=== PATIENT | female | born 1960 | race Caucasian/White ===

== ENCOUNTER 2017-05-20 09:17 | Emergency (ER) | payer OTHER ==
[2017-05-20 09:43] VITALS: BP 108/61
--- NOTE | 2017-05-20 09:55 | UC ---
Skin Complaint HPI - History of Current Complaint Hx Obtained From: Patient Hx Last Menstrual Period: now Onset/Duration: Sudden Onset - found tick on lower back and had remove it yesterdya. she thinks it was there for 2 days-she was hiking. also states she was treated for Lyme disease 5 y ago (blood work was neg. but had symps) Location: Other - L lower back Character: Redness - pinpoint, no rash Aggravating: Nothing Alleviating: Nothing Associated Signs & Symptoms: Positive: Negative Related History: Insect Bite/Sting <Arjun Hart - Last Filed: 05/20/17 09:55> <Bambi Morgan - Last Filed: 05/20/17 10:06> - History of Current Complaint Chief Complaint: UCSkin Time Seen by Provider: 05/20/17 09:45 Stated Complaint: TICK BITE - Allergy/Home Medications Allergies/Adverse Reactions: Allergies Allergy/AdvReac Type Severity Reaction Status Date / Time Codeine Allergy Severe GI Upset Verified 12/27/13 20:00 Review of Systems Constitutional: Negative Respiratory: Negative Cardiovascular: Negative Musculoskeletal: Negative Psychological: Negative All Other Systems Reviewed And Are Negative: Yes <Arjun Hart - Last Filed: 05/20/17 09:55> PMH/Surg Hx/FS Hx/Imm Hx Previously Healthy: Yes Psychological History: Depression - Surgical History Surgical History: None - Family History Known Family History: Positive: None - Social History Occupation: Employed Full-time Alcohol Use: Occasionally Substance Use Type: None Smoking Status (MU): Former Smoker Type: Cigarettes Amount Used/How Often: 3 daily <Arjun Hart - Last Filed: 05/20/17 09:55> Physical Exam Triage Information Reviewed: Yes Appearance: Well-Appearing, No Pain Distress, Well-Nourished Vital Signs: Initial Vital Signs Temp 98 F 05/20/17 09:34 Pulse 63 05/20/17 09:34 Resp 16 05/20/17 09:34 BP 108/61 05/20/17 09:34 Pulse Ox 100 05/20/17 09:34 Vital Signs Reviewed: Yes Respiratory Exam: Normal Cardiovascular Exam: Normal Musculoskeletal Exam: Normal Neurological Exam: Normal Psychological Exam: Normal Skin: Positive: Other - pinpoint red katina site of tick bite, no rash <Arjun Hart - Last Filed: 05/20/17 09:55> Vital Signs: Initial Vital Signs Temp 98 F 05/20/17 09:34 Pulse 63 05/20/17 09:34 Resp 16 05/20/17 09:34 BP 108/61 05/20/17 09:34 Pulse Ox 100 05/20/17 09:34 <Bambi Morgan - Last Filed: 05/20/17 10:06> Course/Dx - Differential Diagnoses - Skin Complaint Differential Diagnoses: Tick Born Illness - Diagnoses Provider Diagnoses: tick bite <Arjun Hart - Last Filed: 05/20/17 09:55> Discharge <Arjun Hart - Last Filed: 05/20/17 09:55> <Bambi Morgan - Last Filed: 05/20/17 10:06> - Discharge Plan Condition: Good Disposition: HOME Prescriptions: DOXYcycline CAP(*) [DOXYcycline 100MG CAP(*)] 100 mg PO DAILY #2 cap Patient Education Materials: Tick Bite (ED) Referrals: Laura Cooney MD [Primary Care Provider] - If Needed (for any signs of Lyme disease) Additional Instructions: keep area clean and dry and watch for signs of Lyme disease. Attestation Statement User Type: Provider - I was available for consult. This patient was seen by the LEONEL. The patient was not presented to, seen by, or examined by me. -Franco <Bambi Morgan - Last Filed: 05/20/17 10:06>
== END 2017-05-20 09:55 | disposition home or self-care (01) ==
LOC: UCEAST 09:17
DX: S30.860A Insect bite (nonvenomous) of lower back and pelvis, initial encounter (principal); W57.XXXA Bitten or stung by nonvenomous insect and other nonvenomous arthropods, initial encounter; Y93.9 Activity, unspecified; Y92.9 Unspecified place or not applicable; F32.9 Major depressive disorder, single episode, unspecified; Z88.5 Allergy status to narcotic agent; Z87.891 Personal history of nicotine dependence
CPT/HCPCS: 99212; G0463

== ENCOUNTER → 2018-09-06 05:58 | Day surgery (SDC) | payer OTHER ==
--- NOTE | 2018-08-28 06:27 | HP ---
HISTORY AND PHYSICAL: DATE OF ADMISSION: 09/06/18 She will be entering [facility] for arthroscopic left knee surgery on 09/06/18. CHIEF COMPLAINT: Left knee anteromedial pain with stiffness, locking, catching , and feelings of given way. HISTORY OF PRESENT ILLNESS: This knee problem got started very suddenly with an awkward bend with a torque on her left knee and unfortunately there was a hot searing bolt of pain that went through the knee at that time and the knee has not been right since then. She has been seen and checked. An MRI scan of the knee shows displaced tearing of the left knee medial meniscus and arthroscopic surgery has been recommended. PAST MEDICAL HISTORY: No diabetes, no hypertension, no chest pain. No bleeding tendencies. PAST SURGICAL HISTORY: Gallbladder removal, and she has had skin cancer. MEDICATIONS: Daily meds: 1. Seroquel 25 mg each evening. 2. Advil 200 mg as necessary. 3. Multivitamins. 4. She has used turmeric. ALLERGIES: She is allergic to CODEINE with GI upset only. No problems with kidney or bladder. No problems with stomach or liver. SOCIAL HISTORY: No smoking. One to two glasses of wine per week. PHYSICAL EXAMINATION Head: NC/AT Cr. NN: Grossly intact Lungs: Clear bilaterally. Heart: Reg. S1 S2 WNL. No murmur or gallops. Abd: Flat, soft, non-tender, no organomegaly. EXTREMITIES: Slight limp on the left. The left knee has a small effusion with extension 0 with discomfort. Tenderness to the medial joint line. Some medial joint discomfort with rotational testing. The left knee nontender anteriorly, laterally, posteriorly. MCL and LCL normal. Anastasiia slight excursion, the same on the right knee and the posterior drawer is negative. The thigh and calf are soft, the calf is nontender. The left posterior tibial pulse is 2+. MRI left knee. Displaced medial meniscal tear IMPRESSION: Left knee medial meniscal tear. PLAN: Left knee arthroscopic surgery. [id number] #: [id number] MTDD
[~2018-09-06 05:58] MED LIST: Buffered Lidocaine 0.9% SYRIN* 5 ML/SYR SYRINGE INTRADERM ONE; Buffered Lidocaine 0.9% SYRIN* 5 ML/SYR SYRINGE ONE; Bupivacaine 0.25% EPI 200,000* 30 ML SDV ONE; Calcium Carbonate CHEW TAB* 500 MG (TUMS) PO ONE; Dexamethasone IV* 4 MG/ML 1 ML (4 MG) ONE; DiMENhydriNATE IV* 50 MG/ML VIAL IV PUSH PRN; Esmolol* 10 MG/ML 10 ML (100 mg) ONE; Ketorolac INJ* 30 MG/ML 1 ML VIAL ONE; Lidocaine 1% MPF wEPI 200,000* 30 ML SDV ONE; Lidocaine 2% PF * 5 ML VIAL ONE; Midazolam* 1 MG/ML 2 ML VIAL (2 MG) ONE; Naloxone* 0.4 MG/ML 1 ML VIAL IV PRN; Propofol* 10 MG/ML 20 ML BTL IV PUSH ONE; Sodium Citrate/Citric Acid* 15 ML UDC ONE; Sodium Citrate/Citric Acid* 15 ML UDC PO ONE; ceFAZolin 2 GM PREMIX in ORs 2 GM/50 ML BAG IVPB ONE; fentaNYL* 50 MCG/ML 2 ML VIAL (100 MCG VIAL) ONE; oxyCODONE/Acetamin 5/325 MG* TAB ONE
[2018-09-06] MEDS: fentaNYL* 50 MCG/ML 2 ML VIAL (100 MCG VIAL) IV PRN ×3 (08:58→09:49)
[2018-09-06 11:19] VITALS: BP 117/73
--- NOTE | 2018-09-07 03:29 | OP ---
OPERATIVE REPORT: DATE OF OPERATION: 09/06/18 - SDS DATE OF : 64 SURGICAL CARE: Left knee. SURGEON: Sanjiv Henriquez MD SHOPPER INSIGHTS MANAGER: Yolande Morgan pc network technician. ANESTHESIOLOGIST: Dr. Lenny Foreman. ANESTHESIA: LMA general. PRE-OP DIAGNOSIS: Left knee medial meniscal tear. POST-OP DIAGNOSIS: Left knee medial meniscal tear. It was a bucket handle type. OPERATIVE PROCEDURE: Left knee partial medial meniscectomy. COMPLICATIONS: There were no complications. DRAINS: There were no drains. TOURNIQUET: Tourniquet control was utilized. CONDITION: Stable to the recovery room. OPERATIVE INDICATIONS: Displaced bucket handle tear of the left knee medial meniscus with continued pain and disability. DESCRIPTION OF PROCEDURE: The patient was brought to the operating room and placed on the operating room table in the supine position. Following the administration of the anesthetic, the left lower extremity was wrapped with a proximal thigh tourniquet. The left leg was prepped from the tourniquet to the foot and then draped free and carefully sealed off in the usual fashion for arthroscopic surgery of the knee. The leg, ankle, and foot portions were sealed off with an impermeable drape with a Vi-Drape wrapped around the calf at the top of that. We did our universal protocol time-out confirming Juana Schroeder and a plan for left knee arthroscopic surgery. We all agreed and we proceeded. The leg was exsanguinated. The tourniquet was elevated to 275. The knee was set up for arthroscopy with the arthroscope lateral to the patellar tendon, probe and operating instruments medial to the patellar tendon and an inflow catheter superomedial to the patella. The survey of the joint showed that the patellofemoral joint was in satisfactory condition. The medial and lateral gutters were clear. There was a displaced bucket handle tear of the medial meniscus with displaced portion being soft and fissured and in several longitudinal pieces. The patient had a normal lateral femoral condyle, lateral meniscus, lateral tibial plateau, normal ACL and PCL, normal medial tibial plateau. The medial femoral condyle did have some cartilage wear on its weightbearing area possibly half a centimeter wide x 2 cm anterior to posterior. Once the pathology was evident, I undid the meniscus anteriorly with shaver and scissors and then the posterior portion was undone with the same and the knee was then inspected through the intercondylar notch. There was some debris posteriorly. The posteromedial meniscus, we finished resection in that region and smoothing. Care was taken not to injure the medial femoral condyle, medial tibial plateau during this surgical care. Photographs were obtained. Once the surgical care was complete, the tourniquet was deflated. The knee was irrigated with another 5 L of saline irrigation solution, then emptied, then instilled with Marcaine 0.25% with epinephrine 30 mL. The skin portals were closed with interrupted 3-0 Surgipro and a dressing applied after washing and drying of Betadine soaked release, sterile Webril and gauze, cryotherapy cuff, ABD pads, and a 6-inch Riccarod bandage loosely applied. The patient was returned to the recovery room in stable and satisfactory condition having tolerated the procedure very well. [id number] #: [id number] WILLIAM
== END | disposition home or self-care (01) ==
LOC: OR 05:58
PROVIDERS: ATTEND Orthopaedic Surgery
DX: S83.212A Bucket-handle tear of medial meniscus, current injury, left knee, initial encounter (principal); X50.0XXA Overexertion from strenuous movement or load, initial encounter; Y92.9 Unspecified place or not applicable; Z85.828 Personal history of other malignant neoplasm of skin; Z87.891 Personal history of nicotine dependence
CPT/HCPCS: 88304; A9270-GY; J0690; J1100; J1885; J2001; J2250; J2704; J3010

== ENCOUNTER → 2019-03-07 13:48 | Emergency (ER) | payer OTHER ==
[~2019-03-07 13:48] MED LIST changes: -Buffered Lidocaine 0.9% SYRIN* 5 ML/SYR SYRINGE INTRADERM ONE; -Buffered Lidocaine 0.9% SYRIN* 5 ML/SYR SYRINGE ONE; -Bupivacaine 0.25% EPI 200,000* 30 ML SDV ONE; -Calcium Carbonate CHEW TAB* 500 MG (TUMS) PO ONE; -Dexamethasone IV* 4 MG/ML 1 ML (4 MG) ONE; -DiMENhydriNATE IV* 50 MG/ML VIAL IV PUSH PRN; -Esmolol* 10 MG/ML 10 ML (100 mg) ONE; +Iohexol 300* (CONTRAST) 10 ML SDV IV ONE; -Ketorolac INJ* 30 MG/ML 1 ML VIAL ONE; -Lidocaine 1% MPF wEPI 200,000* 30 ML SDV ONE; -Lidocaine 2% PF * 5 ML VIAL ONE; +Metoclopramide IV* 5 MG/ML 2 ML VIAL IV ONE; -Midazolam* 1 MG/ML 2 ML VIAL (2 MG) ONE; +NS 0.9% 1000 ML** 1,000 ML IV ONE; -Naloxone* 0.4 MG/ML 1 ML VIAL IV PRN; +Ondansetron INJ* 2 MG/ML VIAL IV ONE; +Pantoprazole IV* 40 MG IV ONE; -Propofol* 10 MG/ML 20 ML BTL IV PUSH ONE; -Sodium Citrate/Citric Acid* 15 ML UDC ONE; -Sodium Citrate/Citric Acid* 15 ML UDC PO ONE; -ceFAZolin 2 GM PREMIX in ORs 2 GM/50 ML BAG IVPB ONE; +diPHENhydraMINE IV* 50 MG/ML 1 ml VIAL (BENADRYL) IV ONE; -fentaNYL* 50 MCG/ML 2 ML VIAL (100 MCG VIAL) ONE; -oxyCODONE/Acetamin 5/325 MG* TAB ONE
[2019-03-07 16:13] LABS: ABS Basophils 0 10^3/ul (0-0.2); ABS Eosinophils 0 10^3/ul (0-0.6); ABS Lymphocytes 0.3 10^3/ul (1.0-4.8); ABS Monocytes 0.5 10^3/ul (0-0.8); ABS Neutrophils 4.8 10^3/ul (1.5-7.7); ABS Nucleated RBC 0 10^3/ul; Eosinophil % 0.4 %; Hematocrit 40 % (33-41); Hemoglobin 13.5 g/dL (12.0-16.0); Lymphocyte % 4.6 %; Mean Corpuscular HGB Conc 34 g/dL (31-36); Mean Corpuscular Hemoglobin 32 pg (27-31); Mean Corpuscular Volume 94 fL (80-97); Mean Platelet Volume 9.3 fL (7.4-10.4); Nucleated Red Blood Cells % 0; Platelet Count 181 10^3/uL (150-450); Red Blood Count 4.29 10^6 /uL (3.70-4.87); Red Cell Distribution Width 14 % (10.5-15); White Blood Count 5.7 10^3/uL (3.5-10.8)
--- NOTE | 2019-03-07 16:15 | ED ---
Abdominal Pain/Female - HPI Summary HPI Summary: A 58 y/o F presents to ED with c/o abd pain onset 1300. She thinks she may have gotten food poisoning yesterday evening. Then around 2100, she had ongoing vomiting. She woke up this AM with a ROMAN. When she ate toast at 1300 today, she took an Advil and felt sudden-onset abd pain (rated as 9 out of 10), became diaphoretic, and had diarrhea that was bloody. This episode lasted approx 30 minutes. She has not had a BM since. Additional associated sx: fever (101.7 F). Abd pain is 3 out of 10 at bedside. No one else at home is sick. No PMHx: colitis. - History of Current Complaint Chief Complaint: EDAbdPain Stated Complaint: STOMACH PAIN, BLOODY STOOL PER PT Time Seen by Provider: 03/07/19 16:07 Hx Obtained From: Patient, Family/Automotive Leasing Sales Representative - Hx Last Menstrual Period: now Onset/Duration: Sudden Onset, Lasting Hours, Still Present Timing: Constant Severity Initially: Severe Severity Currently: Severe Pain Intensity: 4 Pain Scale Used: 0-10 Numeric Location: Diffuse Associated Signs and Symptoms: Positive: Diaphoresis, Fever, Blood in Stool, Vomiting, Diarrhea, Other: - pos: diaphoresis, ROMAN Allergies/Adverse Reactions: Allergies Allergy/AdvReac Type Severity Reaction Status Date / Time codeine Allergy GI Upset Verified 03/07/19 14:02 PMH/Surg Hx/FS Hx/Imm Hx Previously Healthy: Yes Endocrine/Hematology History: Denies: Hx Diabetes Cardiovascular History: Denies: Hx Hypertension, Hx Pacemaker/ICD, Other Cardiovascular Problems/ Disorders Respiratory History: Denies: Hx Asthma, Other Respiratory Problems/Disorders GI History: Denies: Other GI Disorders Sensory History: Reports: Hx Contacts or Glasses - glasses Denies: Hx Hearing Aid Opthamlomology History: Reports: Hx Contacts or Glasses - glasses Neurological History: Denies: Other Neuro Impairments/Disorders Psychiatric History: Denies: Hx Panic Disorder - Cancer History Cancer Type, Location and Year: BASAL CELL SKIN CA Hx Chemotherapy: No Hx Radiation Therapy: No - Surgical History Surgery Procedure, Year, and Place: LAP NAHUM, 1995. RHINOPLASTY, 1982 Hx Anesthesia Reactions: No Infectious Disease History: No Infectious Disease History: Denies: Hx Clostridium Difficile, Hx Hepatitis, Hx Human Immunodeficiency Virus (HIV), Hx of Known/Suspected MRSA, Hx Shingles, Hx Tuberculosis, Hx Known/ Suspected VRE, Hx Known/Suspected VRSA, History Other Infectious Disease, Traveled Outside the [place] in Last 30 Days - Family History Known Family History: Positive: Other - Breast CA - Social History Occupation: Retired Lives: With Family Alcohol Use: Weekly Alcohol Amount: 3-4 per week Hx Substance Use: No Substance Use Type: Reports: None Hx Tobacco Use: Yes Smoking Status (MU): Former Smoker Type: Cigarettes Amount Used/How Often: 3 daily for 30 yrs Review of Systems Positive: Fever, Skin Diaphoresis Positive: Abdominal Pain, Vomiting, Diarrhea, Other - pos: blood in stool Positive: Headache All Other Systems Reviewed And Are Negative: Yes Physical Exam - Summary Physical Exam Summary: GENERAL: Patient is a well-developed and nourished FEMALE who is lying comfortable in the stretcher. Patient is not in any acute respiratory distress. HEAD AND FACE: Normocephalic EYES: PERRLA, EOMI x 2. EARS: Hearing grossly intact. MOUTH: Oropharynx within normal limits. NECK: Supple, trachea is midline, no adenopathy, no JVD, no carotid bruit. CHEST: Symmetric, no tenderness at palpation LUNGS: Clear to auscultation bilaterally. No wheezing or crackles. CVS: Regular rate and rhythm, S1 and S2 present, no murmurs or gallops appreciated. ABDOMEN: Soft, mildly diffuse tenderness to palpation. No rebound, no guarding. Bowel sounds are normal. No abdominal abnormal pulsations. EXTREMITIES: Full ROM in all major joints, no edema, no cyanosis or clubbing. NEURO: Alert and oriented x 3. No acute neurological deficits. Speech is normal and follows commands. SKIN: Dry and warm Triage Information Reviewed: Yes Vital Signs On Initial Exam: Initial Vitals Temp Pulse Resp BP Pulse Ox 97.7 F 57 16 120/75 99 03/07/19 13:57 03/07/19 13:57 03/07/19 13:57 03/07/19 13:57 03/07/19 13:57 Vital Signs Reviewed: Yes Diagnostics - Vital Signs Vital Signs Temp Pulse Resp BP Pulse Ox 03/07/19 15:49 98.5 F 53 16 98/65 98 03/07/19 13:57 97.7 F 57 16 120/75 99 - Laboratory Lab Results: Lab Results 03/07/19 Range/Units 16:00 WBC 5.7 (3.5-10.8) 10^3/uL RBC 4.29 (3.70-4.87) 10^6 /uL Hgb 13.5 (12.0-16.0) g/dL Hct 40 (33-41) % MCV 94 (80-97) fL MCH 32 H (27-31) pg MCHC 34 (31-36) g/dL RDW 14 (10.5-15) % Plt Count 181 (150-450) 10^3/uL MPV 9.3 (7.4-10.4) fL Neut % (Auto) 85.5 % Lymph % (Auto) 4.6 % [place] % (Auto) 9.4 % Eos % (Auto) 0.4 % Baso % (Auto) 0.1 % Absolute Neuts (auto) 4.8 (1.5-7.7) 10^3/ul Absolute Lymphs (auto) 0.3 L (1.0-4.8) 10^3/ul Absolute Monos (auto) 0.5 (0-0.8) 10^3/ul Absolute Eos (auto) 0 (0-0.6) 10^3/ul Absolute Basos (auto) 0 (0-0.2) 10^3/ul Absolute Nucleated RBC 0 10^3/ul Nucleated RBC % 0 Result Diagrams: 03/07/19 16:00 03/07/19 16:00 Lab Statement: Any lab studies that have been ordered have been reviewed, and results considered in the medical decision making process. - CT A/P CT CT Interpretation Completed By: Radiologist Summary of CT Findings: IMPRESSION: There is mild colonic diverticulosis without evidence for acute diverticulitis. No visible mass of the bowel. ED provider has reviewed this report. Re-Evaluation - Re-Evaluation 1 Re-Evaluation Time: 19:09 Change: Improved Comment: Pt is feeling better. Will PO challange and if successfull, D/C home. Abdominal Pain Fem Course/Dx - Course Course Of Treatment: Pt is a 58 y/o F presenting with vomiting onset yesterday at 2100 and then abd pain onset 1300 today, ROMAN, diarrhea, bloody stool, fever, diaphoresis. PE found diffuse abd tenderness to palpation, no rebound, no guarding. Workup is unremarkable except CRP is 16.75, AST: 68. A/P CT shows "Mild colonic diverticulosis without evidence for acute diverticulitis. No visible mass of the bowel." UA is unremarkable. The patient will be discharged. I discussed results with patient and she reports feeling better. She is hemodynamically stable and safe for discharge. Strict return precautions given and she will otherwise follow up with her PCP. - Diagnoses Provider Diagnoses: Abdominal pain, Diverticulosis Discharge - Sign-Out/Discharge Documenting (check all that apply): Patient Departure - DC Patient Received Moderate/Deep Sedation with Procedure: No - Discharge Plan Condition: Stable Disposition: HOME Prescriptions: Ondansetron ODT TAB* [Zofran 4 MG Odt TAB*] 4 mg PO TID PRN #12 tab.odt PRN Reason: Nausea Patient Education Materials: Ondansetron (By mouth), Diverticulitis (ED), Diverticulosis (ED), Melena (ED) Referrals: Janine Maldonado MD [Primary Care Provider] - 2 Days Additional Instructions: Follow up with your primary care physician in 1-3 days. RETURN TO THE EMERGENCY DEPARTMENT FOR CHANGING OR WORSENING SYMPTOMS. - Billing Disposition and Condition Condition: STABLE Disposition: Home - Attestation Statements Document Initiated by Cuateibe: Yes Documenting Cuateibjona: Viktoria Clark Provider For Whom Tobin is Documenting (Include Credential): Dr. John Guerin MD Scribe Attestation: Danisha, Viktoria Clark, scribed for Dr. John Guerin MD on 03/07/19 at 2127. Scribe Documentation Reviewed: Yes Provider Attestation: The documentation as recorded by the Viktoria mcelroy accurately reflects the service I personally performed and the decisions made by me, Dr. John Guerin MD Status of Scribe Document: Viewed
[2019-03-07 16:36] LABS: HCG Pregnancy 1.98 mIU/mL
[2019-03-07 17:31] LABS: Albumin 4.6 g/dL (3.2-5.2); Calcium 9.4 mg/dL (8.6-10.3); Potassium 3.9 mmol/L (3.5-5.0); Total Bilirubin 0.6 mg/dL (0.2-1.0)
[2019-03-07 17:37] LABS: Albumin/Globulin Ratio 1.8 (1-3); C Reactive Protein 16.75 mg/L (<8.01); EGFR African American 91.1 (>60); EGFR Non-African American 75.3 (>60); Globulin 2.5 g/dL (2-4); Total Protein 7.1 g/dL (6.4-8.9)
[2019-03-07 19:07] LABS: Urine Appearance Clear; Urine Bilirubin Negative (Negative); Urine Blood Negative (Negative); Urine Color Yellow; Urine Glucose Negative (Negative); Urine Ketones Trace (Negative); Urine Nitrite Negative (Negative); Urine Protein Negative (Negative); Urine Specific Gravity 1.014 (1.010-1.030); Urine Urobilinogen Negative (Negative)
[2019-03-07 19:26] VITALS: BP 124/74
== END | disposition home or self-care (01) ==
LOC: ED 13:48
DX: K57.90 Diverticulosis of intestine, part unspecified, without perforation or abscess without bleeding (principal); Z87.891 Personal history of nicotine dependence
CPT/HCPCS: 36415; 74177; 80053; 81003; 83605; 83690; 84702; 85025; 86140; 96361; 96374; 96376; 99283; J1200; J2405; J2765